=== PATIENT | female | born 1945 | race Caucasian/White ===

== ENCOUNTER 2020-12-17 14:26 | Emergency (ER) | payer OTHER ==
[2020-12-17 15:36] LABS: HEMOGLOBIN 13.5 gm/dl (12.3-15.3); RED BLOOD COUNT 4.61 M/UL (4.00-5.10)
[2020-12-17 16:04] LABS: BUN/CREATININE RATIO 23 (0-10)
[2020-12-17] MEDS ORDERED: ZOFRAN4 MG PO (17:27)
== END 2020-12-17 18:00 | disposition home or self-care (01) ==
LOC: ER1 14:26
PROVIDERS: Physician Assistant
DX: R11.2 Nausea with vomiting, unspecified (principal); E11.9 Type 2 diabetes mellitus without complications; E03.9 Hypothyroidism, unspecified; Z95.1 Presence of aortocoronary bypass graft; Z90.49 Acquired absence of other specified parts of digestive tract; Z88.0 Allergy status to penicillin; Z79.899 Other long term (current) drug therapy; Z79.84 Long term (current) use of oral hypoglycemic drugs
CPT/HCPCS: 51701; 80053; 81001; 82550; 82553; 83874; 84484; 85025; 93005; 99284

== ENCOUNTER 2021-08-30 12:29 | Inpatient (IN) | payer OTHER ==
[~2021-08-30] VITALS: Ht 152.4 cm; Wt 130.0 kg
[~2021-08-30 12:29] MED LIST: ZOFRAN4 MG PO
[2021-08-30 13:34] LABS: HEMOGLOBIN 13.7 gm/dl (12.3-15.3); RED BLOOD COUNT 4.68 M/UL (4.00-5.10)
[2021-08-30 18:39] LABS: HEMOGLOBIN 12.9 gm/dl (12.3-15.3); RED BLOOD COUNT 4.43 M/UL (4.00-5.10)
[2021-08-30 18:43] LABS: WHITE BLOOD COUNT 1.7 K/UL (4.5-11.0)
[2021-08-31 01:12] LABS: ACINETOBACTER BAUMANNII Not Detected (Negative); CANDIDA ALBICANS Not Detected (Negative); CANDIDA KRUSEI Not Detected (Negative); CANDIDA TROPICALIS Not Detected (Negative); ENTEROCOCCUS Not Detected (Negative); ESCHERICHIA COLI Not Detected (Negative); HAEMOPHILUS INFLUENZAE Not Detected (Negative); KLEBSIELLA OXYTOCA Not Detected (Negative); KLEBSIELLA PNEUMONIAE Not Detected (Negative); KPC-CARBAPENEM-RESISTANCE GENE Not Detected (Negative); PROTEUS Not Detected (Negative); PSEUDOMONAS AERUGINOSA Not Detected (Negative); SERRATIA MARCESANS Not Detected (Negative); STAPHYLOCOCCUS Not Detected (Negative); STAPHYLOCOCCUS AUREUS Not Detected (Negative); STREP AGALACTIAE (GROUP B) Not Detected (Negative); STREP PYOGENES (GROUP A) Not Detected (Negative); mecA (METHICILLIN RESIST GENE Not Detected (Negative); vanA/B (VANCOMYCIN RESIST GENE Not Detected (Negative)
[2021-08-31 01:45] LABS: HEMOGLOBIN 13.6 gm/dl (12.3-15.3); RED BLOOD COUNT 4.61 M/UL (4.00-5.10)
[2021-08-31 03:00] LABS: STREPTOCOCCUS DETECTED (Negative)
[2021-08-31] MEDS ORDERED: FUROSEMIDE40 MG PO (11:48)
[2021-08-31] MEDS ORDERED: GLIPIZIDE10 MG PO (11:48)
[2021-08-31] MEDS ORDERED: ALBUTEROL0.63 MG/3 INH (11:48)
[2021-08-31] MEDS ORDERED: METOPROLOL TART25 MG PO (11:48)
[2021-08-31] MEDS ORDERED: LEVOTHYROXINE175 MCG PO (11:49)
[2021-08-31] MEDS ORDERED: PROAIR HFA8.5 GM INH (11:49)
[2021-08-31] MEDS ORDERED: ELIQUIS5 MG PO (11:49)
[2021-08-31] MEDS ORDERED: CRESTOR20 MG PO (11:50)
[2021-09-01 10:03] LABS: HEMOGLOBIN 14.1 gm/dl (12.3-15.3); RED BLOOD COUNT 4.75 M/UL (4.00-5.10)
[2021-09-01 10:18] LABS: WHITE BLOOD COUNT 13.1 K/UL (4.5-11.0)
--- NOTE | 2021-09-01 23:06 | NUR ---
2229- FAMILY DECIDED TO PROCEED WITH TERMINAL EXTUBATION AND COMFORT CARE. SEE DR. BANKS ORDERS. DR. RAWLS NOTIFIED AND RESPIRATORY CALLED. 2244- ET AND OG TUBE REMOVED. ALL DRIPS STOPPED EXCEPT FOR FENTANYL PER DR. LUI. FAMILY AT BESIDE.
[2021-09-03 14:56] LABS: WHITE BLOOD COUNT 1.3 K/UL (4.5-11.0)
== END 2021-09-01 23:23 | disposition expired | DRG 871 ==
LOC: ER1 12:29 → CCU 17:31 → CDU 17:31 → CCU 20:28
PROVIDERS: Internal Medicine; Internal Medicine Critical Care Medicine; Internal Medicine Nephrology; Physician Assistant; Physician Assistant Medical; ADMIT Internal Medicine
PROC: 3E043XZ Introduction of Vasopressor into Central Vein, Percutaneous Approach (ICD-10-PCS; principal; 2021-08-30)
PROC: 02HV33Z Insertion of Infusion Device into Superior Vena Cava, Percutaneous Approach (ICD-10-PCS; 2021-08-30)
PROC: B548ZZA Ultrasonography of Superior Vena Cava, Guidance (ICD-10-PCS; 2021-08-30)
PROC: 3E04329 Introduction of Other Anti-infective into Central Vein, Percutaneous Approach (ICD-10-PCS; 2021-08-30)
PROC: 0BH18EZ Insertion of Endotracheal Airway into Trachea, Via Natural or Artificial Opening Endoscopic (ICD-10-PCS; 2021-08-31)
PROC: 5A1945Z Respiratory Ventilation, 24-96 Consecutive Hours (ICD-10-PCS; 2021-08-31)
PROC: 03HY32Z Insertion of Monitoring Device into Upper Artery, Percutaneous Approach (ICD-10-PCS; 2021-08-31)
PROC: 4A133B1 Monitoring of Arterial Pressure, Peripheral, Percutaneous Approach (ICD-10-PCS; 2021-08-31)
PROC: 4A133J1 Monitoring of Arterial Pulse, Peripheral, Percutaneous Approach (ICD-10-PCS; 2021-08-31)
DX: A41.89 Other specified sepsis (principal); R65.21 Severe sepsis with septic shock; N17.0 Acute kidney failure with tubular necrosis; I50.41 Acute combined systolic (congestive) and diastolic (congestive) heart failure; J96.01 Acute respiratory failure with hypoxia; D65 Disseminated intravascular coagulation [defibrination syndrome]; G93.41 Metabolic encephalopathy; I21.A1 Myocardial infarction type 2; J18.9 Pneumonia, unspecified organism; Z99.11 Dependence on respirator [ventilator] status; I48.20 Chronic atrial fibrillation, unspecified; E11.52 Type 2 diabetes mellitus with diabetic peripheral angiopathy with gangrene; I70.261 Atherosclerosis of native arteries of extremities with gangrene, right leg; I13.0 Hypertensive heart and chronic kidney disease with heart failure and stage 1 through stage 4 chronic kidney disease, or unspecified chronic kidney disease; E87.2 Acidosis; M62.82 Rhabdomyolysis; D61.818 Other pancytopenia; L03.116 Cellulitis of left lower limb; Z20.822 Contact with and (suspected) exposure to COVID-19; N18.30 Chronic kidney disease, stage 3 unspecified; Z66 Do not resuscitate; Z51.5 Encounter for palliative care; I25.10 Atherosclerotic heart disease of native coronary artery without angina pectoris; R57.0 Cardiogenic shock; E78.5 Hyperlipidemia, unspecified; E11.22 Type 2 diabetes mellitus with diabetic chronic kidney disease; E03.9 Hypothyroidism, unspecified; R53.81 Other malaise; I99.8 Other disorder of circulatory system; D70.9 Neutropenia, unspecified; R50.81 Fever presenting with conditions classified elsewhere; I50.811 Acute right heart failure; I25.5 Ischemic cardiomyopathy; I27.20 Pulmonary hypertension, unspecified; Z90.49 Acquired absence of other specified parts of digestive tract; Z98.49 Cataract extraction status, unspecified eye; Z95.1 Presence of aortocoronary bypass graft; Z87.440 Personal history of urinary (tract) infections; Z98.890 Other specified postprocedural states; Z88.0 Allergy status to penicillin; Z88.8 Allergy status to other drugs, medicaments and biological substances; Z87.891 Personal history of nicotine dependence; Z79.01 Long term (current) use of anticoagulants; Z85.89 Personal history of malignant neoplasm of other organs and systems; Z92.29 Personal history of other drug therapy; Z90.89 Acquired absence of other organs
CPT/HCPCS: ECHO; 31500; 36415; 36600; 71045; 80048; 80053; 80202; 81001; 82140; 82310; 82550; 82553; 82803; 82962; 83605; 83735; 83874; 83880; 84484; 85025; 85384; 85610; 85652; 85730; 86140; 87040; 87070; 87077; 87081; 87150; 87186; 87205; 93005; 93306; 93925; 93970; 94002; 94003; 94760; 96374; 96375; 99285; C1751; C9113; J0610; J0696; J1644; J1720; J2185; J2250; J2370; J3370; J7030; J7040; J7070; U0002